=== PATIENT | male | born 1965 | race Caucasian/White ===

== ENCOUNTER 2020-09-23 16:23 | Emergency (ER) | payer OTHER ==
[~2020-09-23] VITALS: Ht 180.3 cm; Wt 56.7 kg
--- NOTE | ~2020-09-23 | EMS ---
[facility] [address] [place] [address] EMS Patient Care Report Name: BJORN LIN Room #: REG TAMMY Islas#: [id number] Admission: 09/23/20 Attend Phys: Discharge: Date of : 63 Report #: [id number] THIS REPORT FOR: //name// Report Transmitted: 09/23/2020 17:10 EMS Care Summary [facility]-ACT Incident [id number] @ 09/23/2020 15:38 Incident Location [address] [place] [address] Patient BJORN LIN Male, 55 Years 1965 Patient Address [address] [place] [address] Patient History None Reported, Patient Allergies No known allergies, Patient Medications None Reported, Chief Complaint syncope/collapse Disposition Transported No Lights/[place] Reason Unconscious/Fainting Transported To [facility] Narrative At 15"38, M-[id number] was dispatched by 911 to a private residence at [address] [facility] for a C3 fall. E-23 was also dispatched. PT was a 55 yr old male who was standing in line at the [facility] restaurant waiting to order food when he collapsed and was unresponsive for an estimated 2-3 [facility] [address] [place] [address] EMS Patient Care Report Name: BJORN LIN Room #: REG ER Roshan#: [id number] Admission: 09/23/20 Attend Phys: Discharge: Date of : 63 Report #: [id number] minutes. Upon EMS arrival, PT was alert and sitting in a chair. PT stated that he felt fine and that he did not think he needed to go to the hospital. Initial BP showed a systolic of 77, PT initially did not want go to hospital. We explained the hazards of refusing transport, and that he probably should not be driving until his hypotension was corrected. PT agreed to be taken to the closest hospital for treatment. VS and 12-lead as listed. radio report to [place]. Transfer of care to ED room 3. Initial Vitals @16:16P: 97,MD Suspected: false @15:56P: 97,MD Suspected: false @16:16P: 94,R: 16,BP: 123/83,GCS: 15,Revised Trauma: 12, @16:04P: 108,R: 16,BP: 89/64,GCS: 15,Revised Trauma: 11, @PTAP: 104,R: 16,BP: 73/39,Pain: 0/10,GCS: 15,SpO2: 98,Revised Trauma: 10, @PTAP: 100,R: 12,BP: 71/51,GCS: 15,SpO2: 97,Revised Trauma: 10, @15:53P: 96,R: 16,BP: 106/73,Pain: 0/10,GCS: 15,Temp: 97.8F,Glucose: 103,SpO2: 97,Revised Trauma: 12, Assessments @15:47MENTAL:Person Oriented,Time Oriented,Place Oriented,Event Oriented,SKIN:HEENT:Eyes: Left Pupil: 4-mm,Eyes: Right Pupil: 4-mm,Head/Face: No Abnormalities,Neck/Airway: No Abnormalities,LUNG SOUNDS:ABDOMEN:PELVIS//GI:No Abnormalities,EXTREMITIES:Left Arm: No Abnormalities,Right Arm: No Abnormalities,Left Leg: No Abnormalities,Right Leg: No Abnormalities,PULSE:NEURO: Impression Syncope / Fainting Procedures @15:5612-Lead ECGResponse: UnchangedSucceeded@16:18Normal Saline (.9% NaCl) 300cc (20 ga) Site: Upper Arm-RightResponse: ImprovedSucceeded@15:47ALS AssessmentResponse: UnchangedSucceeded Timeline HIM DIRECTOR,BP: 73/39 M,PULSE: 104,RR: 16 R,SPO2: 98 Ox,ETCO2: ,BG: ,PAIN: 0,GCS: 15, HIM DIRECTOR,BP: 71/51 M,PULSE: 100,RR: 12 R,SPO2: 97 Ox,ETCO2: ,BG: ,PAIN: ,GCS: 15, 15:36,Call Received 15:36,Psap Call 15:38,Dispatched 15:39,En Route 15:45,On Scene 15:46,At Patient 15:47,ALS Assessment,Response: UnchangedSucceeded, 15:53,BP: 106/73 M,PULSE: 96,RR: 16 R,SPO2: 97 Ox,ETCO2: ,B,PAIN: 0,GCS: [address] [address] EMS Patient Care Report Name: BJORN LIN Room #: REG Roshan#: [id number] Admission: 09/23/20 Attend Phys: Discharge: Date of : 63 Report #: [id number] 15, 15:56,12-Lead ECG,Response: UnchangedSucceeded, 15:56,BP: / M,PULSE: 97,RR: R,SPO2: Ox,ETCO2: ,BG: ,PAIN: ,GCS: , 16:04,BP: 89/64 M,PULSE: 108,RR: 16 R,SPO2: Ox,ETCO2: ,BG: ,PAIN: ,GCS: 15, 16:14,Depart Scene 16:16,BP: 123/83 M,PULSE: 94,RR: 16 R,SPO2: Ox,ETCO2: ,BG: ,PAIN: ,GCS: 15, 16:16,BP: / M,PULSE: 97,RR: R,SPO2: Ox,ETCO2: ,BG: ,PAIN: ,GCS: , 16:18,Normal Saline (.9% NaCl) 300cc 20 ga Site: Upper Arm-Right,Response: ImprovedSucceeded, 16:19,At Destination 16:30,Call Closed Disclaimer v1.1 Copyright 2020 [employer] This EMS Care Summary contains data elements from the applicable legal record (which may be displayed differently). It is designed to provide pertinent information for the following purposes: continuity of care, clinical quality, and state data reporting. The complete legal record is available to ED staff and administrators of the receiving hospital in [employer] Patient Tracker. All data is provided "as is."
[2020-09-23 16:38] LABS: ABSOLUTE NEUTROPHILS 3.8 thou/uL (1.4-8.2); BASOPHILS 0.4 % (0.0-2.0); EOSINOPHILS 3.5 % (0.0-3.0); HEMATOCRIT 42.7 % (42.0-52.0); HEMOGLOBIN 14.5 gm/dL (14.0-18.0); LYMPHOCYTES 44.3 % (24.0-44.0); MCH 32.8 pg (26.0-34.0); MCV 96.5 fL (80.0-100.0); MONOCYTES 10.3 % (1.0-8.0); PLATELET COUNT 232 thou/uL (150-400); POLYS 41.5 % (36.0-66.0); RBC 4.42 mil/uL (4.50-6.00); WBC 9.1 thou/uL (4.0-11.0)
[2020-09-23 16:45] LABS: ANION GAP 7 mmol/L (7-16); BUN 16 mg/dL (7-18); CALCIUM 7.8 mg/dL (8.5-10.1); CHLORIDE 106 mmol/L (98-107); CO2 27 mmol/L (21-32); CREATININE 1.1 mg/dL (0.7-1.3); GLUCOSE 97 mg/dL (74-106); POTASSIUM 4.1 mmol/L (3.5-5.1); SODIUM 140 mmol/L (136-145)
[2020-09-23 16:54] LABS: ALBUMIN 3.2 g/dL (3.4-5.0); SGOT 18 U/L (15-37); SGPT 20 U/L (16-63); TOTAL BILIRUBIN 0.2 mg/dL (0.2-1.0); TOTAL PROTEIN 6.3 g/dL (6.4-8.2); TROPONIN-I <0.06 ng/mL (<0.06)
[2020-09-23] MEDS ORDERED: NORCO5 PO (19:37)
[2020-09-23 19:54] VITALS: BP 123/87
--- NOTE | 2020-09-24 10:32 | EKG ---
[address] [address] ELECTROCARDIOGRAM REPORT Name: BJORN LIN [id number] Admission: 09/23/20 Attend Phys: Discharge: 09/23/20 Date of : 63 Report #: [id number] [facility] ED Test Date: 2020-09-23 Test Time: 16:31:52 Pat Name: BJORN LIN Department: Room: Gender: Software Quality Assurance Analyst: [employer]FT : 1965 Requested By: Libertad Davis Order Number: [id number] MD: Surinder Santacruz Measurements Intervals [place] Rate: 88 P: 86 NC: 148 QRS: 81 QRSD: 86 T: 73 QT: 377 QTc: 457 Interpretive Statements Sinus rhythm Repolarization abnormality No previous ECG available for comparison Electronically Signed On 09-24-2020 10:32:26 CDT by Surinder Santacruz [email or web address] <ELECTRONICALLY SIGNED> By: Surinder Santacruz MD, [facility] 09/24/20 1032 1631 1631 Surinedr Santacruz MD, FACC /EPI
--- NOTE | 2020-09-24 10:34 | EKG ---
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 guillory : 1965 Requested By: Libertad Davis Order Number: [id number] MD: Surinder Santacruz Measurements Intervals [place] Rate: 86 P: 83 SD: 141 QRS: 80 QRSD: 91 T: 68 QT: 381 QTc: 456 Interpretive Statements Sinus rhythm Repolarization abnormality, probably early repolarization Compared to ECG 09/23/2020 16:31:52 No significant changes Electronically Signed On 09-24-2020 10:34:13 CDT by Surinder Santacruz [email or web address] <ELECTRONICALLY SIGNED> By: Surinder Santacruz MD, [facility] 09/24/20 1034 182 21 Surinder Santacruz MD, FACC /EPI
== END 2020-09-23 19:55 | disposition home or self-care (01) ==
LOC: ER 16:23
PROVIDERS: Physician Assistant
DX: R55 Syncope and collapse (principal); J34.9 Unspecified disorder of nose and nasal sinuses; M25.562 Pain in left knee; F19.10 Other psychoactive substance abuse, uncomplicated